=== PATIENT | male | born 1995 | race Two or more races ===

== ENCOUNTER 2024-03-15 08:53 | Emergency (ER) | payer OTHER ==
[~2024-03-15] VITALS: Ht 175.3 cm; Wt 98.6 kg
[2024-03-15 09:06] VITALS: TEMP 98.1
[2024-03-15] MEDS: ACETAMINOPHEN 500 MG TABLET PO ONE (09:36)
[2024-03-15] MEDS: IBUPROFEN 600 MG TABLET PO ONE (09:36)
[2024-03-15] MEDS: LIDOCAINE 5% TRANSDERMAL PATCH TD ONE (09:37)
[2024-03-15 10:52] VITALS: BP 130/80; PULSE 82; RESP 16
== END 2024-03-15 10:52 | disposition home or self-care (01) ==
LOC: EMS 08:57
DX: S46.012A Strain of muscle(s) and tendon(s) of the rotator cuff of left shoulder, initial encounter (principal); X58.XXXA Exposure to other specified factors, initial encounter; Y93.89 Activity, other specified; Y92.89 Other specified places as the place of occurrence of the external cause; Y99.8 Other external cause status
CPT/HCPCS: 99284